=== PATIENT | female | born 1970 | race Caucasian/White ===

== ENCOUNTER 2018-05-28 05:34 | Day surgery (SDC) | payer OTHER ==
[2018-05-27 13:40] VITALS: BMI 22.5
--- NOTE | 2018-05-28 09:23 | HP ---
Admitting History and Physical - Primary Care Physician PCP: Beth Heard - Admission Chief Complaint: 48yo P2 with irregular bleeding, prior h/o endometrial polyps, for Hysteroscopy, Polypectomy, Endometrial ablation History of Present Illness: persistent metrorrhagia declines use of OCP s/p BTL History Source: Patient Limitations to Obtaining History: No Limitations - Past Medical History ...LMP: 05/15/18 ...: No ...: 3 ...Para: 2 ( and c/section) Heme/Onc: Yes: Anemia - Past Surgical History Past Surgical History: Yes: , Tubal Ligation - Smoking History Smoking history: Never smoked Have you smoked in the past 12 months: No - Alcohol/Substance Use Hx Alcohol Use: No History of Substance Use: reports: None - Social History Usual Living Arrangement: Yes: With Spouse History of Recent Travel: No Home Medications - Allergies Allergies/Adverse Reactions: Allergies Allergy/AdvReac Type Severity Reaction Status Date / Time No Known Allergies Allergy Verified 05/27/18 13:35 - Home Medications Home Medications: Ambulatory Orders NK [No Known Home Medication] 05/27/18 Review of Systems - Review of Systems Constitutional: reports: No Symptoms Eyes: reports: No Symptoms HENT: reports: No Symptoms Neck: reports: No Symptoms Cardiovascular: reports: No Symptoms Respiratory: reports: No Symptoms Gastrointestinal: reports: No Symptoms Genitourinary: reports: No Symptoms, Other (abnormal, irregular menses) Breasts: reports: No Symptoms Reported Musculoskeletal: reports: No Symptoms Integumentary: reports: No Symptoms Neurological: reports: No Symptoms Endocrine: reports: No Symptoms Hematology/Lymphatic: reports: No Symptoms Psychiatric: reports: No Symptoms Pain Intensity: 0 Physical Examination Vital Signs: Vital Signs Temperature 97.9 F 05/28/18 07:59 Pulse Rate 79 05/28/18 07:59 Respiratory Rate 18 05/28/18 07:59 Blood Pressure 106/68 05/28/18 07:59 O2 Sat by Pulse Oximetry (%) 99 05/28/18 07:59 Constitutional: Yes: Well Nourished, No Distress, Calm Eyes: Yes: WNL, Conjunctiva Clear, EOM Intact HENT: Yes: WNL, Atraumatic, Normocephalic Neck: Yes: WNL, Supple, Trachea Midline Cardiovascular: Yes: WNL, Regular Rate and Rhythm Respiratory: Yes: WNL, Regular, CTA Bilaterally Gastrointestinal: Yes: WNL, Normal Bowel Sounds, Soft Renal/: Yes: WNL Breast(s): Yes: WNL Musculoskeletal: Yes: WNL Extremities: Yes: WNL Edema: No Neurological: Yes: WNL, Alert, Oriented ...Motor Strength: WNL Psychiatric: Yes: WNL, Alert, Oriented Imaging - Results Ultrasound: Other (Office US showing thicker than expected Endometrium, out of synk with the cycle) Assessment/Plan 48yo P2 With Mtrorrhagia, anemia for Hysteroscopy, possible Polypectomy, possible myomectomy, D&C and Endometrial ablation r/b/a discussed with the patient consent signed and witnessed
[2018-05-28] MEDS ORDERED: MIDAZOLAM HCL 2 MG/2 ML SINGLE DOSE VIAL ONE ×2 (09:40)
[2018-05-28] MEDS ORDERED: IBUPROFEN 600 MG TABLET (FP) PO PRN (10:53)
[2018-05-28] MEDS ORDERED: ONDANSETRON 4 MG/2 ML VIAL IVPUSH PRN ×2 (10:53→11:41)
[2018-05-28] MEDS ORDERED: IBUPROFEN 800 MG/8 ML IJ IVPB PRN (10:53)
[2018-05-28] MEDS ORDERED: oxyCODONE HCL 5 MG TABLET PO PRN ×2 (10:53→11:41)
[2018-05-28] MEDS ORDERED: ELECTROLYTE-148 SOLN 1,000 ML IV SCH (11:00)
--- NOTE | 2018-05-28 11:00 | OP ---
Operative Note - Note: Operative Date: 05/28/18 Pre-Operative Diagnosis: 48yo P2 with Menometrorrhagia, anemia, thick endometrium Operation: Hysteroscopy, Polypectomy, Endometrial ablation Findings: 1. Overgrown Endometrium 2. Endocervical polyp Post-Operative Diagnosis: Same as Pre-op Surgeon: Beth Heard Anesthesiologist/PERMIT REVIEW ASSISTANT: Treasure Stuart MD Anesthesia: MAC Estimated Blood Loss (mls): 5 Instrument used (Debridements only): Symphion and HTA - [employer] scopes Drains & Tubes with Location: Fluid deficit - 0cc Drains, Volume Out (mls): 10 Fluid Volume Replaced (mls): 800 Operative Report Dictated: Yes
[2018-05-28] MEDS ORDERED: PROMETHAZINE HCL 25 MG/1 ML VIAL IVPUSH PRN (11:41)
[2018-05-28] MEDS ORDERED: LACTATED RINGERS SOLUTION 1,000 ML IV SCH (11:45)
[2018-05-28 13:35] VITALS: BP 115/74; PULSE 78; TEMP 97.8
--- NOTE | 2018-05-28 15:53 | OP ---
DATE OF OPERATION: 05/28/2018 PREOPERATIVE DIAGNOSIS: A 48-year-old para 2 with menometrorrhagia, anemia, thickened endometrium. OPERATION: Hysteroscopy, polypectomy, endometrial ablation. FINDINGS: Overgrown endometrium out of sync with menstrual cycle and 2 endocervical polyps. POSTOPERATIVE DIAGNOSIS: A 48-year-old para 2 with menometrorrhagia, anemia, thickened endometrium. SURGEON: Padma Quiñones M.D. ANESTHESIOLOGIST: Treasure Stuart M.D. ANESTHESIA: MAC DESCRIPTION OF OPERATIVE PROCEDURE: After ensuring informed consent, patient was brought to the operating room, where she was placed in dorsal lithotomy position. Perineum and vagina were prepped and draped in sterile fashion. Since retractors were used to visualize the cervix, cervical anterior lip was articulated with single-toothed tenaculum and dilated with gradually increasing in dilators to accommodate 6.3 mm hysteroscope. Hysteroscope was introduced inside the uterus without any difficulty, with good visualization of intrauterine structures. Bilateral ostia were visualized. The endometrium was found to be overgrown, but no large polyps or fibroids were identified except for the small cervical polyp which hysteroscope was removed and endometrial and endocervical curettage with sharp 1 gauge curet was performed. A large quantity of products of endometrial lining were obtained and sent for pathology. Hysteroscope introduced once more, and cavity was found to be much more denuded than previously. The subsequently HTA hysteroscope was introduced into the uterus without any difficulty and 8.5 minutes of HTA ablation cycle was performed at 90 degrees celsius with good visualization of intrauterine structures, 2 minute cooling was performed. All instruments were subsequently removed from uterus, cervix, vagina. Instrument and sponge count was correct x2. Estimated blood loss 5 mL. Urine output 10 mL. Fluid deficit zero. Fluid volume replaced 800 mL. Patient tolerated procedure well and was brought to the recovery room in stable condition. PADMA QUIÑONES M.D. PATTI/[id number]
--- NOTE | 2018-05-29 16:44 | PATH ---
Surgical Pathology Report Patient Name: RAMA PENNINGTON [facility]. Rec. #: [id number] /Age/Gender: 1970 (Age: 48) / F Account: [id number] Location: [facility] SURGICAL Taken: 05/28/2018 Received: 05/28/2018 Reported: 05/29/2018 Physicians: Beth Heard M.D. Specimen(s) Received ENDOCERVICAL POLYP, ENDOMETRIAL CURETTINGS Clinical History Abnormal uterine and vaginal bleeding Final Diagnosis ENDOCERVICAL POLYP, ENDOMETRIAL CURETTINGS: MIXED ENDOCERVICAL/ENDOMETRIAL POLYP, AND ENDOMETRIAL POLYP. SEPARATE SMOOTH MUSCLE BUNDLES, SUGGESTIVE OF SUBMUCOSAL LEIOMYOMA. SEPARATE SECRETORY TYPE ENDOMETRIUM. Electronically Signed Tari Owusu M.D. Gross Description Received in formalin labeled "endocervical polyp, endometrial curettings," is a 4.2 x 4.0 x 0.3 cm aggregate of molina-red soft tissue fragments admixed with blood clot. The formalin is filtered and the specimen is entirely submitted in 3 cassettes. /05/28/2018 [facility]05/28/2018
== END 2018-05-28 13:41 | disposition home or self-care (01) ==
LOC: JASU-SURG 05:34
PROVIDERS: ATTEND Obstetrics & Gynecology
PROC: 0U5B8ZZ Destruction of Endometrium, Via Natural or Artificial Opening Endoscopic (ICD-10-PCS; principal; 2018-05-28 09:00)
PROC: 0UB97ZX Excision of Uterus, Via Natural or Artificial Opening, Diagnostic (ICD-10-PCS; 2018-05-28 09:00)
DX: N92.1 Excessive and frequent menstruation with irregular cycle (principal); D64.9 Anemia, unspecified; N85.00 Endometrial hyperplasia, unspecified
CPT/HCPCS: 84703; 88305-TC; 94760